=== PATIENT | male | born 1995 | race Caucasian/White ===

== ENCOUNTER 2023-05-31 07:49 | Emergency (ER) | payer OTHER ==
[~2023-05-31] VITALS: Ht 182.9 cm; Wt 97.5 kg
[2023-05-31 08:18] VITALS: BP 153/97
[2023-05-31] MEDS ORDERED: Percocet 5-3251 EACH PO (08:40)
[2023-05-31] MEDS ORDERED: ONDA4ODT MM (08:40)
== END 2023-05-31 08:47 | disposition home or self-care (01) ==
LOC: ER 07:49
DX: M25.562 Pain in left knee (principal); Z76.0 Encounter for issue of repeat prescription
CPT/HCPCS: 99281